=== PATIENT | male | born 1975 | race Two or more races ===

== ENCOUNTER 2019-04-13 22:16 | Inpatient (IN) | payer SELFPAY ==
[~2019-04-13] VITALS: Ht 167.6 cm; Wt 93.9 kg
[2019-04-13] MEDS ORDERED: METHYLPREDNISOLONE SOD SUCC 125 MG/2 ML VIAL IV STA (23:30)
[2019-04-13 23:55] LABS: HEMATOCRIT. 47.1 % (42.0-52.0); HEMOGLOBIN. 16.6 g/dL (14.0-18.0); LYMPHOCYTES % 26.8 % (20.0-50.0); MEAN CORPUSCULAR HEMOGLOBIN 34.2 pg (28.0-32.0); MEAN CORPUSCULAR VOLUME 97.1 fL (80.0-94.0); MEAN PLATELET VOLUME 10.2 fl (7.4-10.4); NEUTROPHILS % 63.2 % (40.0-76.0); PLATELET 183 x1000/uL (130-400); RED BLOOD CELL COUNT 4.85 mill/uL (4.7-6.1); RED CELL DISTRIBUTION WIDTH 13.3 % (11.6-14.6)
[2019-04-13 23:59] LABS: CHLORIDE 108 mEq/L (98-107)
[2019-04-14] MEDS ORDERED: VISCOUS LIDOCAINE 2% 15 ML UDC MM STA
[2019-04-14 00:18] LABS: INR 0.9; PARTIAL THROMBOPLASTIN TIME 28.5 sec (23.4-31.0); PROTHROMBIN TIME 10.2 sec (9.6-11.0)
[2019-04-14] MEDS ORDERED: GUAIFENESIN-DM 200MG-20MG/10ML UDC PO ONE (00:30)
[2019-04-14] MEDS ORDERED: PANTOPRAZOLE SODIUM 40 MG/VIAL IV ONE (00:45)
[2019-04-14] MEDS ORDERED: LABETALOL 5MG/ML SYR 20 MG/4 ML SYRINGE IV ONE ×2 (00:45)
[2019-04-14] MEDS ORDERED: METOPROLOL TARTRATE 50MG TABLET PO ONE (00:45)
[2019-04-14] MEDS ORDERED: OCTREOTIDE ACETATE 50 MCG/ML 1ML IV NR (01:30)
[2019-04-14] MEDS ORDERED: ONDANSETRON HCL 4MG/2ML INJ IV ONE (02:15)
[2019-04-14] MEDS ORDERED: MORPHINE SULFATE 4 MG/ML CPJ (NOT FOR IM USE) IV ONE (02:15)
[2019-04-14] MEDS ORDERED: HYDRALAZINE 20MG/ML VIAL IV ONE (02:15)
[2019-04-14] MEDS ORDERED: AMLODIPINE 10MG TABLET PO ONE (03:00)
[2019-04-14] MEDS ORDERED: NICARDIPINE 100 MG in SODIUM CHLORIDE 0.9% 60 ML IV STA (03:35)
[2019-04-14] MEDS ORDERED: NICARDIPINE 40MG/200ML PREMIX 200 ML IV PRN (04:00)
[2019-04-14] MEDS ORDERED: IOHEXOL-300 100 ML BOTTLE ONE (07:21)
[2019-04-14] MEDS ORDERED: CLONIDINE 0.1MG TABLET PO PRN (14:45)
[2019-04-14] MEDS ORDERED: IPRATROPIUM BROMIDE (0.02%) 0.5MG/2.5ML NEB HHN PRN (14:45)
[2019-04-14 15:05] VITALS: BP 166/101
[2019-04-14] MEDS ORDERED: LISI-186 PO (15:24)
[2019-04-14] MEDS ORDERED: RACEPINEPHRINE 2.25% 0.5ML NEB VIAL HHN PRN (15:45)
[2019-04-14] MEDS: LOSARTAN POTASSIUM 100 MG TABLET PO SCH (15:59)
[2019-04-14] MEDS: CHLORDIAZEPOXIDE 25MG CAPSULE PO SCH ×2 (15:59→21:15)
[2019-04-14 16:00] VITALS: BP 151/97
[2019-04-14] MEDS: FOLIC ACID 1 MG, THIAMINE HCL 100 MG, MVI, ADULT NO.1 10 ML in DEXTROSE 5% WATER 1,000 ML IV NR ×4 (16:00)
[2019-04-14] MEDS: LEVOFLOXACIN 750MG PREMIX 150 ML IV SCH (16:00)
[2019-04-14 16:21] LABS: HEMATOCRIT 48.4 % (42.0-52.0); HEMOGLOBIN 17.2 g/dL (14.0-18.0); MEAN CORPUSCULAR HEMOGLOBIN 34.5 pg (28.0-32.0); MEAN CORPUSCULAR VOLUME 97.1 fL (80.0-94.0); PLATELET 193 x1000/uL (130-400); RED BLOOD CELL COUNT 4.99 mill/uL (4.7-6.1); RED CELL DISTRIBUTION WIDTH 13.6 % (11.6-14.6)
[2019-04-14] MEDS: METRONIDAZOLE 500 MG PREMIX 100 ML IV SCH (17:52)
[2019-04-14] MEDS: PANTOPRAZOLE SODIUM 40 MG/VIAL IV SCH (17:57)
[2019-04-14 20:00] VITALS: BP 156/102
[2019-04-15] VITALS: BP 164/94
[2019-04-15 04:00] VITALS: BP 164/106
[2019-04-15] MEDS: METRONIDAZOLE 500 MG PREMIX 100 ML IV SCH ×3 (05:17→17:05)
[2019-04-15] MEDS: CHLORDIAZEPOXIDE 25MG CAPSULE PO SCH ×3 (05:17→21:21)
[2019-04-15] MEDS: FOLIC ACID 1 MG, THIAMINE HCL 100 MG, MVI, ADULT NO.1 10 ML in DEXTROSE 5% WATER 1,000 ML IV NR ×4 (05:43)
[2019-04-15 06:56] LABS: BASOPHILS % 0.1 % (0.0-2.0); HEMATOCRIT. 46.6 % (42.0-52.0); HEMOGLOBIN. 16.7 g/dL (14.0-18.0); LYMPHOCYTES % 7.8 % (20.0-50.0); MEAN CORPUSCULAR HEMOGLOBIN 34.8 pg (28.0-32.0); MEAN CORPUSCULAR VOLUME 97.4 fL (80.0-94.0); MEAN PLATELET VOLUME 10.5 fl (7.4-10.4); MONOCYTES % 5.2 % (2.0-8.0); NEUTROPHILS % 86.9 % (40.0-76.0); PLATELET 186 x1000/uL (130-400); RED BLOOD CELL COUNT 4.78 mill/uL (4.7-6.1); RED CELL DISTRIBUTION WIDTH 13.4 % (11.6-14.6)
[2019-04-15 07:18] LABS: CHLORIDE 107 mEq/L (98-107)
[2019-04-15 08:00] VITALS: BP 154/100
[2019-04-15] MEDS: PANTOPRAZOLE SODIUM 40 MG/VIAL IV SCH ×2 (09:07→17:05)
[2019-04-15] MEDS: AMLODIPINE 10MG TABLET PO SCH (09:08)
[2019-04-15] MEDS: LOSARTAN POTASSIUM 100 MG TABLET PO SCH (09:08)
[2019-04-15 12:00] VITALS: BP 137/100
[2019-04-15] MEDS: POTASSIUM CHLORIDE 20MEQ TABLET SR PO SCH (12:32)
[2019-04-15 16:00] VITALS: BP 146/86
[2019-04-15] MEDS: LEVOFLOXACIN 750MG PREMIX 150 ML IV SCH (16:13)
[2019-04-15] MEDS ORDERED: LOSA100T3 PO (18:00)
[2019-04-15] MEDS ORDERED: ALBU18HF2 IH (18:00)
[2019-04-15] MEDS ORDERED: LEVO750T21 MT (18:00)
[2019-04-15] MEDS ORDERED: AMLO10TA80 PO (18:00)
[2019-04-15] MEDS ORDERED: HYDR100T26 PO (18:00)
[2019-04-15 20:00] VITALS: BP 146/94
[2019-04-15] MEDS ORDERED: HYDRALAZINE HCL 100MG TABLET PO SCH (21:00)
[2019-04-16] VITALS: BP 149/88
[2019-04-16] MEDS: FOLIC ACID 1 MG, THIAMINE HCL 100 MG, MVI, ADULT NO.1 10 ML in DEXTROSE 5% WATER 1,000 ML IV NR ×8 (01:53→08:00)
[2019-04-16] MEDS: METRONIDAZOLE 500 MG PREMIX 100 ML IV SCH ×2 (01:53→08:52)
[2019-04-16 04:00] VITALS: BP 156/105
[2019-04-16 05:09] LABS: BASOPHILS % 0.7 % (0.0-2.0); HEMATOCRIT. 46.5 % (42.0-52.0); HEMOGLOBIN. 16.3 g/dL (14.0-18.0); LYMPHOCYTES % 33.6 % (20.0-50.0); MEAN CORPUSCULAR HEMOGLOBIN 34.4 pg (28.0-32.0); MEAN CORPUSCULAR VOLUME 98.5 fL (80.0-94.0); MEAN PLATELET VOLUME 10.1 fl (7.4-10.4); MONOCYTES % 6.3 % (2.0-8.0); NEUTROPHILS % 58.4 % (40.0-76.0); PLATELET 162 x1000/uL (130-400); RED BLOOD CELL COUNT 4.72 mill/uL (4.7-6.1); RED CELL DISTRIBUTION WIDTH 13.3 % (11.6-14.6)
[2019-04-16 05:18] LABS: CHLORIDE 107 mEq/L (98-107)
[2019-04-16] MEDS: CHLORDIAZEPOXIDE 25MG CAPSULE PO SCH (06:23)
[2019-04-16 07:42] VITALS: BP 161/100
[2019-04-16 07:57] VITALS: BP 161/100
[2019-04-16] MEDS ORDERED: HYDRALAZINE HCL 100MG TABLET PO SCH (08:45)
[2019-04-16] MEDS: POTASSIUM CHLORIDE 20MEQ TABLET SR PO SCH (08:52)
[2019-04-16] MEDS: LOSARTAN POTASSIUM 100 MG TABLET PO SCH (08:52)
[2019-04-16] MEDS: PANTOPRAZOLE SODIUM 40 MG/VIAL IV SCH (08:52)
[2019-04-16] MEDS: AMLODIPINE 10MG TABLET PO SCH (08:52)
[2019-04-16 16:00] LABS: *AMPHETAMINES SCREEN URINE NEGATIVE (NEGATIVE); *BARBITURATES SCREEN URINE NEGATIVE (NEGATIVE); *BENZODIAZEPINES SCREEN URINE PRESUMTIVE POSITIVE (NEGATIVE); *COCAINE SCREEN URINE NEGATIVE (NEGATIVE)
[2019-04-16 16:02] LABS: CANNABINOID URINE SCREEN NEGATIVE (NEGATIVE); METHADONE URINE SCREEN NEGATIVE (NEGATIVE); OPIATES URINE SCREEN PRESUMTIVE POSITIVE (NEGATIVE); PHENCYCLIDINE URINE SCREEN NEGATIVE (NEGATIVE)
== END 2019-04-16 11:18 | disposition home or self-care (01) | DRG 720 ==
LOC: ER 22:16 → EDBEDREQ 04-14 01:24 → EDBEDREQSVC 04-14 01:24 → EDBEDREQTM 04-14 01:24 → EDBEDREQSVC 04-14 03:39 → ENRESERV 04-14 12:27 → EDBEDREQSVC 04-14 12:56 → CVICU 04-14 13:20 → 7WST 04-14 15:09
PROVIDERS: ADMIT Internal Medicine; ATTEND Internal Medicine
DX: A41.9 Sepsis, unspecified organism (principal); J96.00 Acute respiratory failure, unspecified whether with hypoxia or hypercapnia; J18.9 Pneumonia, unspecified organism; K76.0 Fatty (change of) liver, not elsewhere classified; I10 Essential (primary) hypertension; F17.210 Nicotine dependence, cigarettes, uncomplicated; R59.0 Localized enlarged lymph nodes; Z77.098 Contact with and (suspected) exposure to other hazardous, chiefly nonmedicinal, chemicals; F10.10 Alcohol abuse, uncomplicated; E66.9 Obesity, unspecified; K42.9 Umbilical hernia without obstruction or gangrene; K40.90 Unilateral inguinal hernia, without obstruction or gangrene, not specified as recurrent; K57.30 Diverticulosis of large intestine without perforation or abscess without bleeding; I16.0 Hypertensive urgency; E87.8 Other disorders of electrolyte and fluid balance, not elsewhere classified; Z72.89 Other problems related to lifestyle; Z71.6 Tobacco abuse counseling; Z82.49 Family history of ischemic heart disease and other diseases of the circulatory system; Z91.19 Patient's noncompliance with other medical treatment and regimen; Z68.33 Body mass index [BMI] 33.0-33.9, adult; Z71.89 Other specified counseling; Z71.41 Alcohol abuse counseling and surveillance of alcoholic
CPT/HCPCS: 36415; 71045; 71260; 74177; 80048; 80053; 80305; 80320; 83036; 85025; 85027; 86850; 86900; 93005; 93970; 96374; 99291; C9113; J0360; J1956; J2270; J2354; J2405; J2930; J3411; J3490; J7050; J7070; Q9967; G0480